=== PATIENT | female | born 1975 | race American Indian/Alaskan Native ===

== ENCOUNTER 2017-02-17 10:38 | Outpatient (CLI) | payer OTHER ==
--- NOTE | 2017-02-17 11:23 | XRay Report ---
BILATERAL KNEES, 2 VIEWS History: Bilateral knee pain, myalgia. Findings: No comparison. There is normal bone mineralization. No abnormal osseous findings or joint pathology is appreciated. Normal soft tissues. Impression: Normal bilateral knees.
== END 2017-02-17 10:39 | disposition home or self-care (01) ==
LOC: XRAY 10:38
PROVIDERS: ATTEND Internal Medicine
DX: M25.561 Pain in right knee (principal); M25.562 Pain in left knee; G43.109 Migraine with aura, not intractable, without status migrainosus; M79.7 Fibromyalgia; K58.9 Irritable bowel syndrome, unspecified; F32.9 Major depressive disorder, single episode, unspecified; G47.30 Sleep apnea, unspecified; M10.9 Gout, unspecified; F41.9 Anxiety disorder, unspecified